=== PATIENT | male | born 1965 | race Caucasian/White ===

== ENCOUNTER 2018-08-17 10:49 | Emergency (ER) | payer OTHER ==
[2018-08-17] MEDS ORDERED: ONDANSETRON HCL INJ/PF 4 MG/2 ML SDV IV ONE (11:38)
[2018-08-17] MEDS ORDERED: KETOROLAC TROMETHAMINE INJ/PF 30 MG/1 ML SDV IV ONE (11:38)
--- NOTE | 2018-08-17 11:40 | ER Document Report ---
ED Medical Screen (RME) - General Chief Complaint: Flank Pain Stated Complaint: FLANK PAIN Time Seen by Provider: 08/17/18 11:38 TRAVEL OUTSIDE OF THE [place] IN LAST 30 DAYS: No - HPI Notes: 08/17/18 11:39 Patient is a 53-year-old male with a history of kidney stones as well as hypertension who presents to the emergency department complaining of right flank pain that has been intermittent over the last couple days. Patient states that when the pain intensifies it does radiate from his right flank to his right groin. Patient states that he has had symptoms previously with kidney stones. He has had associated nausea and vomiting as well. Denies drug allergies. No other concerns or complaints. Denies any headache, fever, chest pain, syncope, cough, shortness of breath, wheeze, diarrhea, urinary retention, loss of control of bowel or bladder, numbness/tingling, saddle anesthesia, muscle paralysis/weakness, or rash. I have treated and performed a rapid initial assessment of this patient. A comprehensive ED assessment and evaluation of the patient, analysis of test results and completion of medical decision making process will be conducted by additional ED providers. PHYSICAL EXAMINATION: GENERAL: Well-appearing, well-nourished and in no acute distress. A&Ox4. Answers questions appropriately. LUNGS: Breath sounds clear to auscultation bilaterally and equal. No wheezes rales or rhonchi. HEART: Regular rate and rhythm without murmurs, rubs, gallops. ABDOMEN: Soft, nondistended abdomen. No guarding, no rebound. Normal bowel sounds present. + mild right CVA tenderness bilaterally. + mild epigastric tenderness (cannot elicit thorough abd exam w/o table, however). Extremities: No cyanosis, clubbing, or edema b/l. NEUROLOGICAL: Normal speech, normal gait. PSYCH: Normal mood, normal affect. - Related Data Allergies/Adverse Reactions: No Known Allergies Allergy (Verified 08/17/18 10:51) Past Medical History - Past Medical History Cardiac Medical History: Reports: Hx Hypertension Renal/ Medical History: Denies: Hx Peritoneal Dialysis Physical Exam - Vital signs Vitals: Temp Pulse Resp BP Pulse Ox 99.5 F 71 17 174/111 H 97 08/17/18 10:57 08/17/18 10:57 08/17/18 10:57 08/17/18 10:57 08/17/18 10:57 Course - Vital Signs Vital signs: Temp Pulse Resp BP Pulse Ox 99.5 F 71 17 174/111 H 97 08/17/18 10:57 08/17/18 10:57 08/17/18 10:57 08/17/18 10:57 08/17/18 10:57
[2018-08-17] MEDS: NORMAL SALINE 1000 ML 1,000 ML IV PRN ×2 (12:05→12:06)
[2018-08-17 12:11] LABS: ABSOLUTE EOSINOPHILS # (AUTO) 0.1 10^3/uL (0.0-0.6); ABSOLUTE LYMPHOCYTES (AUTO) 1.5 10^3/uL (0.5-4.7); ABSOLUTE MONOCYTES (AUTO) 0.8 10^3/uL (0.1-1.4); ABSOLUTE NEUT (AUTO) 5.9 10^3/uL (1.7-8.2); BASOPHILS % (AUTO) 0.4 % (0-2); EOSINOPHILS % (AUTO) 1.3 % (0-6); HEMATOCRIT 46.5 % (37.9-51.0); LYMPHOCYTES % (AUTO) 17.7 % (13-45); MEAN CORPUSCULAR HEMOGLOBIN 31.2 pg (27.0-33.4); MEAN CORPUSCULAR HGB CONC 34.5 g/dL (32.0-36.0); MEAN CORPUSCULAR VOLUME 91 fl (80-97); MONOCYTES % (AUTO) 9.9 % (3-13); PLATELET COUNT 252 10^3/uL (150-450); RED BLOOD COUNT 5.14 10^6/uL (4.35-5.55); RED CELL DISTRIBUTION WIDTH 12.8 % (11.5-14.0); SEGMENTED NEUTROPHILS % (AUTO) 70.7 % (42-78); TOTAL CELLS COUNTED % (AUTO) 100 %; WHITE BLOOD COUNT 8.4 10^3/uL (4.0-10.5)
[2018-08-17 12:20] LABS: APPEARANCE,URINE CLEAR; BILIRUBIN,URINE NEGATIVE (NEGATIVE); COLOR,URINE STRAW; GLUCOSE, URINE NEGATIVE (NEGATIVE); KETONES,URINE NEGATIVE (NEGATIVE); LEUKOCYTE ESTERASE,URINE NEGATIVE (NEGATIVE); NITRITE,URINE NEGATIVE (NEGATIVE); PROTEIN,URINE NEGATIVE (NEGATIVE); URINE SPECIFIC GRAVITY 1.004; UROBILINOGEN,URINE NEGATIVE mg/dL (<2.0)
[2018-08-17 12:35] LABS: ALANINE AMINOTRANSFERASE 21 U/L (21-72); ALBUMIN 4.7 g/dL (3.5-5.0); ALKALINE PHOSPHATASE 88 U/L (38-126); ANION GAP 11 (5-19); ASPARTATE AMINO TRANSFERASE 21 U/L (17-59); BILIRUBIN,DIRECT 0.2 mg/dL (0.0-0.4); BILIRUBIN,TOTAL 1.1 mg/dL (0.2-1.3); BLOOD UREA NITROGEN 12 mg/dL (7-20); CALCIUM 9.8 mg/dL (8.4-10.2); CARBON DIOXIDE 31 mmol/L (22-30); CHLORIDE 95 mmol/L (98-107); GLUCOSE 94 mg/dL (75-110); POTASSIUM 4.5 mmol/L (3.6-5.0); TOTAL PROTEIN 7.3 g/dL (6.3-8.2)
--- NOTE | 2018-08-17 13:25 | RADIOLOGY REPORT (SQ) ---
EXAM DESCRIPTION: CT ABD/PELVIS NO ORAL OR IV COMPLETED DATE/TIME: 08/17/2018 1:11 pm REASON FOR STUDY: Rt flank pain COMPARISON: None. TECHNIQUE: CT scan of the abdomen and pelvis performed without intravenous or oral contrast. Images reviewed with lung, soft tissue, and bone windows. Reconstructed coronal and sagittal MPR images revi ewed. All images stored on PACS. All CT scanners at this facility use dose modulation, iterative reconstruction, and/or weight based d osing when appropriate to reduce radiation dose to as low as reasonably achievable (ALARA). [facility]: Dose Right [facility]: CareDose [facility]: Dose Right [facility]: Teradose 4D [facility]: Smart Backspaces RADIATION DOSE: CT Rad equipment meets quality standard of care and radiation dose reduction techniq ues were employed. CTDIvol: 15.7 mGy. DLP: 889 mGy-cm.mGy. LIMITATIONS: None. FINDINGS: LOWER CHEST: No significant findings. No nodules or infiltrates. NON-CONTRASTED LIVER, SPLEEN, ADRENALS: Evaluation limited by lack of IV contrast. No identified sign ificant masses. Scattered subcentimeter hypodense hepatic lesions, likely cyst but too small to andrés acterize. PANCREAS: No masses. No peripancreatic inflammatory changes. GALLBLADDER: Cholelithiasis. No evidence of acute cholecystitis. RIGHT KIDNEY AND URETER: No suspicious masses. Assessment limited by lack of IV contrast. Multiple punctate nonobstructing right renal stones. There is a 7 mm stone within the proximal right ureter w ith associated mild upstream hydro nephrosis. LEFT KIDNEY AND URETER: No suspicious masses. Assessment limited by lack of IV contrast. Scattered nonobstructing stones, largest measuring 4 mm. No hydronephrosis or hydroureter. AORTA AND RETROPERITONEUM: No aneurysm. No retroperitoneal masses or adenopathy. BOWEL AND PERITONEAL CAVITY: No obvious masses or inflammatory changes. No free fluid. APPENDIX: Normal. PELVIS, BLADDER, AND ABDOMINAL WALL:No abnormal masses. No free fluid. Bladder normal. BONES: No significant findings. OTHER: No other significant finding. IMPRESSION: 1. 7 mm stone within the proximal right ureter with associated mild upstream hydronephr osis. 2. Additional bilateral nonobstructing renal stones. COMMENT: Quality ID # [id number]: Final reports with documentation of one or more dose reduction techniques (e.g., Automated exposure control, adjustment of the mA and/or kV according to patient size, use of iterative reconstruction technique) TECHNICAL DOCUMENTATION: JOB ID: [id number] [employer]- All Rights Reserved Reading location - IP/workstation name: [email or web address]
[2018-08-17] MEDS ORDERED: TAMSULOSIN HCL 0.4 MG CAP.SR.24H PO ONE (15:37)
--- NOTE | 2018-08-17 15:45 | ER Document Report ---
HPI - HPI Patient complains to provider of: Flank pain Time Seen by Provider: 08/17/18 11:38 Onset/Duration: Persistent Quality of pain: Achy Pain Level: Denies Context: Patient presents complaining of a 4-day history of intermittent right flank pain. Patient states when he has the pain he will occasionally get nauseous. Patient reports vomiting x2 episodes today. Patient denies any fever. Patient reports history of kidney stones and suspects the same today. Patient has never followed up with urology in the past. Patient reports that pain is resolved at this time. Associated Symptoms: Other - Right flank pain. denies: Fever, Nausea, Vomiting Exacerbated by: Denies Relieved by: Denies Similar symptoms previously: No Recently seen / treated by doctor: No - ROS ROS below otherwise negative: Yes Systems Reviewed and Negative: Yes All other systems reviewed and negative - CONSTITUTIONAL Constitutional: DENIES: Fever - RESPIRATORY Respiratory: DENIES: Trouble Breathing, Coughing - GASTROINTESTINAL Gastrointestinal: REPORTS: Nausea, Patient vomiting. DENIES: Abdominal Pain - URINARY Urinary: DENIES: Dysuria, Urgency, Frequency - MUSCULOSKELETAL Musculoskeletal: REPORTS: Back Pain - DERM Skin Color: Normal Skin Problems: None Past Medical History - General Information source: Patient - Social History Smoking Status: Never Smoker Frequency of alcohol use: None Drug Abuse: None Occupation: Massage therapist Lives with: Family Family History: Reviewed & Not Pertinent Patient has suicidal ideation: No Patient has homicidal ideation: No Renal/ Medical History: Reports: Hx Kidney Stones. Denies: Hx Peritoneal Dialysis Surgical Hx: Negative Vertical Provider Document - CONSTITUTIONAL Agree With Documented VS: Yes Exam Limitations: No Limitations General Appearance: WD/WN, No Apparent Distress - INFECTION CONTROL TRAVEL OUTSIDE OF THE [place] IN LAST 30 DAYS: No - HEENT HEENT: Atraumatic, Normocephalic - NECK Neck: Normal Inspection - RESPIRATORY Respiratory: Breath Sounds Normal, No Respiratory Distress - CARDIOVASCULAR Cardiovascular: Regular Rate, Regular Rhythm - GI/ABDOMEN Gastrointestinal: Abdomen Soft, Abdomen Non-Tender, Normal Bowel Sounds - BACK Back: Normal Inspection. negative: CVA Tenderness-Right, CVA Tenderness-Left - MUSCULOSKELETAL/EXTREMETIES Musculoskeletal/Extremeties: MAEW, DEREK - NEURO Level of Consciousness: Awake, Alert, Appropriate Motor/Sensory: No Motor Deficit - DERM Integumentary: Warm, Dry, No Rash Course - Re-evaluation Re-evalutation: 08/17/18 15:[address] childress regarding patient presentation and diagnostic evaluation. Agrees with discharge plan of care and recommends outpatient follow-up with urology. Patient denies any abdominal pain or flank pain at this time. - Vital Signs Vital signs: Temp Pulse Resp BP Pulse Ox 99.5 F 71 17 174/111 H 97 08/17/18 10:57 08/17/18 10:57 08/17/18 10:57 08/17/18 10:57 08/17/18 10:57 - Laboratory Result Diagrams: 08/17/18 11:55 08/17/18 11:55 Laboratory results interpreted by me: 08/17/18 08/17/18 11:55 11:55 Chloride 95 L Carbon Dioxide 31 H Creatinine 1.38 H Est GFR (Non-Af Amer) 54 L Urine Blood LARGE H 08/17/18 15:44 Labs- Entire Visit 08/17/18 08/17/18 08/17/18 11:55 11:55 11:55 WBC 8.4 RBC 5.14 Hgb 16.0 Hct 46.5 MCV 91 MCH 31.2 MCHC 34.5 RDW 12.8 Plt Count 252 Seg Neutrophils % 70.7 Lymphocytes % 17.7 Monocytes % 9.9 Eosinophils % 1.3 Basophils % 0.4 Absolute Neutrophils 5.9 Absolute Lymphocytes 1.5 Absolute Monocytes 0.8 Absolute Eosinophils 0.1 Absolute Basophils 0.0 Sodium 137.0 Potassium 4.5 Chloride 95 L Carbon Dioxide 31 H Anion Gap 11 BUN 12 Creatinine 1.38 H Est GFR ( Amer) > 60 Est GFR (Non-Af Amer) 54 L Glucose 94 Calcium 9.8 Total Bilirubin 1.1 Direct Bilirubin 0.2 Neonat Total Bilirubin Not Reportable Neonat Direct Bilirubin Not Reportable Neonat Indirect Bili Not Reportable AST 21 ALT 21 Alkaline Phosphatase 88 Total Protein 7.3 Albumin 4.7 Urine Color STRAW Urine Appearance CLEAR Urine pH 7.0 Ur Specific [place] 1.004 Urine Protein NEGATIVE Urine Glucose (UA) NEGATIVE Urine Ketones NEGATIVE Urine Blood LARGE H Urine Nitrite NEGATIVE Urine Bilirubin NEGATIVE Urine Urobilinogen NEGATIVE Ur Leukocyte Esterase NEGATIVE Urine WBC (Auto) 1 Urine RBC (Auto) 0 Urine Mucus (Auto) RARE Urine Ascorbic Acid NEGATIVE - Diagnostic Test Radiology reviewed: Reports reviewed Discharge - Discharge Clinical Impression: Ureteral stone Condition: Stable Disposition: HOME, SELF-CARE Additional Instructions: Return immediately for any new or worsening symptoms Followup with your primary care provider, call tomorrow to make a followup appointment Follow-up with urology for further evaluation, call today for an appointment. KIDNEY STONE: You are passing or have passed a kidney stone. These stones are usually due to increased calcium or uric acid concentrations in your urine. Stones within the kidney itself are not painful. The pain occurs as the stone leaves the kidney to pass down the long tube, called the ureter, leading to the bladder. If the stone is small, it will usually pass by itself. Most patients can pass the stone at home. You will usually receive medications for pain, nausea or vomiting, and sometimes a medication to assist in passing the kidney stone. However, if the pain is very severe or if vomiting prevents you from taking oral pain medications, you may need to return for further treatment. Drink three or four quarts of fluids per day. You will be given pain medication (if needed) and urine strainers. Strain all your urine to see if the stone passes. If your doctor has asked you to bring the stone in for analysis, return with the stone once it has passed. Return if pain or vomiting become severe, if you develop a high fever, if you are unable to pass your urine, or if other unusual symptoms occur. TORADOL INJECTION: You have been given an injection of ketorolac tromethamine (Toradol). This is an excellent, safe drug for pain control. It also has potent antiinflammatory action. You should have significant pain relief within about one hour. Toradol is not addicting and is non-sedating. It does not interfere with driving or work. Call or return if you develop itching, hives, shortness of breath, or rash. ANTINAUSEA MEDICATION: You have been given a medication to suppress nausea and vomiting. This type of medication can be given as a shot, pill, or suppository. It will usually last for many hours. Pills and shots usually last six to eight hours, suppositories last about 12 hours. For the typical illness, only one or two doses of the medication may be necessary. Mild lightheadedness may occur. This type of medicine can cause drowsiness. Do not drive or operate dangerous machinery while under its influence. Do not mix with alcohol. See your doctor at once if you have muscle spasms or tightness, or uncontrollable motions (particularly of the neck, mouth, or jaw). Persistent vomiting or severe lightheadedness should also be evaluated by the physician. ORAL NARCOTIC MEDICATION: You have been given a prescription for pain control. This medication is a narcotic. It's best taken with food, as nausea can result if taken on an empty stomach. Don't operate machinery or drive within six hours of taking this medication. Do not combine this medicine with alcohol, or with any medication which can cause sedation (such as cold tablets or sleeping pills) unless you get permission from the physician. Narcotics tend to cause constipation. If possible, drink plenty of fluids and eat a diet high in fiber and fruits. Please be aware that prescription narcotics also have the potential for abuse. People become addicted to these medications because of the general sense of wellbeing that they induce. This feeling along with a significant reduction in tension, anxiety, and aggression provides a stimulating seductive quality to these drugs. Once your pain is under control, we encourage you to discard your unused narcotics. FLOMAX (tamsulosin): Flomax is a medicine that shrinks the prostate gland. It helps relieve symptoms of benign prostatic hypertrophy, such as frequent urination, weak stream, and inadequate emptying. It has been shown to dilate the ureter (tube leading from the kidney to the bladder) and help in passing kidney stones Flomax usually causes no side effects. You may notice slight tiredness and dizziness for a few days. Some patients develop nasal congestion. Rarely, impotence can occur. If the symptoms are bothersome and don't improve with continued use, call your doctor. Contact your doctor or return if you have fainting spells, severe weakness or dizziness, shortness of breath, or rash. FOLLOW-UP CARE: If you have been referred to a physician for follow-up care, call the physicians office for an appointment as you were instructed or within the next two days. If you experience worsening or a significant change in your symptoms, notify the physician immediately or return to the Emergency Department at any time for re-evaluation. Prescriptions: Ondansetron HCl [Zofran 4 mg Tablet] 1 - 2 tab PO Q6 PRN #15 tablet PRN Reason: Oxycodone HCl/Acetaminophen [Percocet 5-325 mg Tablet] 1 tab PO ASDIR PRN #15 tablet PRN Reason: Tamsulosin HCl [Flomax 0.4 mg Cap.sr] 0.4 mg PO DAILY #7 cap.sr.24h Forms: Return to Work Referrals: [facility] [Provider Group] - Follow up as needed [facility] [Provider Group] - Follow up as needed [facility] [Provider Group] - Follow up tomorrow
[2018-08-17 15:51] VITALS: BP 160/98
== END 2018-08-17 15:55 | disposition home or self-care (01) ==
LOC: ER 10:49
DX: N13.2 Hydronephrosis with renal and ureteral calculous obstruction (principal)
CPT/HCPCS: 99284; 96361; 96374; 96375; 36415; 87086; 85025; 80053; 81001; 74176; J1885; J2405; J7030

== ENCOUNTER 2018-11-29 13:24 | Emergency (ER) | payer OTHER ==
--- NOTE | 2018-11-29 13:58 | ER Document Report ---
Addendum entered and electronically signed by OMAR LOBO PA-C 11/29/18 14:06: Course - Re-evaluation Re-evalutation: 11/29/18 14:06 Pt only urinated 20cc and was hematuria. Emery will be placed. Pt still uncomfortable and feeling of incomplete void - Vital Signs Vital signs: Temp Pulse Resp BP Pulse Ox 98.3 F 80 18 147/101 H 97 11/29/18 13:34 11/29/18 13:34 11/29/18 13:34 11/29/18 13:34 11/29/18 13:34 Original Note: ED Medical Screen (RME) - General Chief Complaint: Urinary Problem Stated Complaint: BLOOD IN URINE Time Seen by Provider: 11/29/18 13:51 Primary Care Provider: GERTRUDIS SCHROEDER MD [Primary Care Provider] - Follow up as needed TRAVEL OUTSIDE OF THE [place] IN LAST 30 DAYS: No - HPI Notes: 11/29/18 13:56 Patient is a 53-year-old male with a history of hypertension who presents complaining of hematuria, being unable to fully void, suprapubic pressure, and some discomfort with urinating that began last evening. Patient states that he is just having drops of blood at this point coming out. He did have a stent placed for kidney stones 1 week ago at [facility]. Patient states that he did urinate clear yesterday which was the first time since the procedure, but then started having a lot of hematuria thereafter which is what prompted him to come here. Patient states he feels like he has to urinate, but cannot. Denies NOEL, fever, neck pain, URI, CP, SOB, back pain, or rash. I have treated and performed a rapid initial assessment of this patient. A comprehensive ED assessment and evaluation of the patient, analysis of test results and completion of medical decision making process will be conducted by additional ED providers. PHYSICAL EXAMINATION: GENERAL: Well-appearing, well-nourished and in no acute distress. A&Ox4. Answers questions appropriately. LUNGS: Breath sounds clear to auscultation bilaterally and equal. No wheezes rales or rhonchi. HEART: Regular rate and rhythm without murmurs, rubs, gallops. - Related Data Allergies/Adverse Reactions: No Known Allergies Allergy (Verified 08/17/18 10:51) Past Medical History - Past Medical History Cardiac Medical History: Reports: Hx Hypertension Renal/ Medical History: Reports: Hx Kidney Stones. Denies: Hx Peritoneal Dialysis Physical Exam - Vital signs Vitals: Temp Pulse Resp BP Pulse Ox 98.3 F 80 18 147/101 H 97 11/29/18 13:34 11/29/18 13:34 11/29/18 13:34 11/29/18 13:34 11/29/18 13:34 Course - Vital Signs Vital signs: Temp Pulse Resp BP Pulse Ox 98.3 F 80 18 147/101 H 97 11/29/18 13:34 11/29/18 13:34 11/29/18 13:34 11/29/18 13:34 11/29/18 13:34 Doctor's Discharge - Discharge Referrals: GERTRUDIS SCHROEDER MD [Primary Care Provider] - Follow up as needed
[2018-11-29 14:13] LABS: APPEARANCE,URINE SLIGHTLY-CLOUDY; BILIRUBIN,URINE NEGATIVE (NEGATIVE); GLUCOSE, URINE NEGATIVE (NEGATIVE); KETONES,URINE NEGATIVE (NEGATIVE); LEUKOCYTE ESTERASE,URINE NEGATIVE (NEGATIVE); NITRITE,URINE NEGATIVE (NEGATIVE); PROTEIN,URINE >=500 mg/dL (NEGATIVE); URINE SPECIFIC GRAVITY 1.016; UROBILINOGEN,URINE NEGATIVE mg/dL (<2.0)
[2018-11-29 14:17] LABS: COLOR,URINE RED
[2018-11-29 14:37] LABS: ABSOLUTE BASOPHILS # (AUTO) 0.1 10^3/uL (0.0-0.2); ABSOLUTE EOSINOPHILS # (AUTO) 0.1 10^3/uL (0.0-0.6); ABSOLUTE LYMPHOCYTES (AUTO) 1.4 10^3/uL (0.5-4.7); ABSOLUTE MONOCYTES (AUTO) 0.6 10^3/uL (0.1-1.4); ABSOLUTE NEUT (AUTO) 7.3 10^3/uL (1.7-8.2); BASOPHILS % (AUTO) 0.5 % (0-2); EOSINOPHILS % (AUTO) 1.4 % (0-6); HEMATOCRIT 43.6 % (37.9-51.0); MEAN CORPUSCULAR HEMOGLOBIN 30.8 pg (27.0-33.4); MEAN CORPUSCULAR HGB CONC 34.5 g/dL (32.0-36.0); MEAN CORPUSCULAR VOLUME 89 fl (80-97); MONOCYTES % (AUTO) 6.7 % (3-13); PLATELET COUNT 315 10^3/uL (150-450); RED BLOOD COUNT 4.89 10^6/uL (4.35-5.55); RED CELL DISTRIBUTION WIDTH 12.6 % (11.5-14.0); SEGMENTED NEUTROPHILS % (AUTO) 76.4 % (42-78); TOTAL CELLS COUNTED % (AUTO) 100 %; WHITE BLOOD COUNT 9.6 10^3/uL (4.0-10.5)
[2018-11-29 15:00] LABS: ALANINE AMINOTRANSFERASE 22 U/L (21-72); ALKALINE PHOSPHATASE 84 U/L (38-126); ANION GAP 11 (5-19); ASPARTATE AMINO TRANSFERASE 40 U/L (17-59); BILIRUBIN,DIRECT 0.3 mg/dL (0.0-0.4); BILIRUBIN,TOTAL 0.8 mg/dL (0.2-1.3); BLOOD UREA NITROGEN 19 mg/dL (7-20); CALCIUM 10.1 mg/dL (8.4-10.2); CARBON DIOXIDE 30 mmol/L (22-30); CHLORIDE 96 mmol/L (98-107); GLUCOSE 107 mg/dL (75-110); POTASSIUM 4.4 mmol/L (3.6-5.0); SODIUM 137.1 mmol/L (137-145); TOTAL PROTEIN 7.6 g/dL (6.3-8.2)
[2018-11-29] MEDS ORDERED: CEFTRIAXONE 1 GM/D5W RTU 1 GM/50 ML RTUPB IV ONE (15:00)
--- NOTE | 2018-11-29 15:06 | RADIOLOGY REPORT (SQ) ---
EXAM DESCRIPTION: CT ABD/PELVIS NO ORAL OR IV COMPLETED DATE/TIME: 11/29/2018 2:52 pm REASON FOR STUDY: Rt flank pain, recent stent, hematuria COMPARISON: 08/17/2018. TECHNIQUE: CT scan of the abdomen and pelvis performed without intravenous or oral contrast. Images reviewed with lung, soft tissue, and bone windows. Reconstructed coronal and sagittal MPR images revi ewed. All images stored on PACS. All CT scanners at this facility use dose modulation, iterative reconstruction, and/or weight based d osing when appropriate to reduce radiation dose to as low as reasonably achievable (ALARA). [facility]: Dose Right [facility]: CareDose [facility]: Dose Right [facility]: Teradose 4D [facility]: [employer] RADIATION DOSE: CT Rad equipment meets quality standard of care and radiation dose reduction techniq ues were employed. CTDIvol: 16.1 mGy. DLP: 963 mGy-cm.mGy. LIMITATIONS: None. FINDINGS: LOWER CHEST: No significant findings. No nodules or infiltrates. NON-CONTRASTED LIVER, SPLEEN, ADRENALS: Evaluation limited by lack of IV contrast. No identified sign ificant masses. PANCREAS: No masses. No peripancreatic inflammatory changes. GALLBLADDER: Gallstones. No inflammatory changes to suggest cholecystitis. RIGHT KIDNEY AND URETER: No suspicious masses. Assessment limited by lack of IV contrast. No signif icant calcifications. Ureteral stent present. Proximal loop in the upper pole calyceal system and distal loop in the bladder. No hydronephrosis or hydroureter. LEFT KIDNEY AND URETER: No suspicious masses. Assessment limited by lack of IV contrast. Calyceal c alculi in the lower pole. No hydronephrosis or hydroureter. AORTA AND RETROPERITONEUM: No aneurysm. No retroperitoneal masses or adenopathy. BOWEL AND PERITONEAL CAVITY: No obvious masses or inflammatory changes. No free fluid. APPENDIX: Normal. PELVIS, BLADDER, AND ABDOMINAL WALL:No abnormal masses. No free fluid. Catheter in the bladder. BONES: No significant findings. OTHER: No other significant finding. IMPRESSION: 1. INTERVAL PLACEMENT OF A RIGHT URETERAL STENT. NO SIGNIFICANT HYDRONEPHROSIS OR HYDROURETER. 2. NONOBSTRUCTING CALYCEAL CALCULI IN THE LOWER POLE OF THE LEFT KIDNEY. 3. GALLSTONES. 4. NO OTHER SIGNIFICANT OR ACUTE PROCESS IN THE ABDOMEN OR PELVIS. COMMENT: Quality ID # [id number]: Final reports with documentation of one or more dose reduction techniques (e.g., Automated exposure control, adjustment of the mA and/or kV according to patient size, use of iterative reconstruction technique) TECHNICAL DOCUMENTATION: JOB ID: [id number] [employer]- All Rights Reserved Reading location - IP/workstation name: [email or web address]
--- NOTE | 2018-11-29 16:56 | ER Document Report ---
ED General - General Chief Complaint: Urinary Problem Stated Complaint: BLOOD IN URINE Time Seen by Provider: 11/29/18 13:51 Primary Care Provider: GERTRUDIS SCHROEDER MD [NO LOCAL MD] - Follow up as needed TRAVEL OUTSIDE OF THE [place] IN LAST 30 DAYS: No - HPI Notes: Patient is a 53-year-old male, who presents to the emergency department for evaluation of hematuria and the sensation that his bladder is not emptying. He had lithotripsy with right ureteral stent placement 6 days ago. He states he had some pink urine which seemed to resolve. He started having more significantly gross hematuria in the last 24 hours. He puts his pain at a 2 out of 10 in his flank area, states that ice seems to help it significantly. He does relate that earlier today he felt chilled, was very sweaty in a cold room. He denies any nausea or vomiting. Normal bowel movements. No other acute c omplaints or concerns. He relates that he was to see his urologist tomorrow for stent removal. He notes that the "string" is no longer visible. - Related Data Allergies/Adverse Reactions: No Known Allergies Allergy (Verified 08/17/18 10:51) Past Medical History - General Information source: Patient - Social History Smoking Status: Unknown if Ever Smoked Family History: Reviewed & Not Pertinent Patient has suicidal ideation: No Patient has homicidal ideation: No - Past Medical History Cardiac Medical History: Reports: Hx Hypertension Renal/ Medical History: Reports: Hx Kidney Stones. Denies: Hx Peritoneal Dialysis Review of Systems - Review of Systems Constitutional: No symptoms reported EENT: No symptoms reported Cardiovascular: No symptoms reported Respiratory: No symptoms reported Gastrointestinal: No symptoms reported Genitourinary: See HPI Male Genitourinary: No symptoms reported Musculoskeletal: No symptoms reported Skin: No symptoms reported Neurological/Psychological: No symptoms reported Physical Exam - Vital signs Vitals: Temp Pulse Resp BP Pulse Ox 98.3 F 80 18 147/101 H 97 11/29/18 13:34 11/29/18 13:34 11/29/18 13:34 11/29/18 13:34 11/29/18 13:34 - Notes Notes: Vital signs reviewed, please refer to chart. Head is normocephalic, atraumatic. Pupils equal round, reactive to light. Neck is supple without meningismus. Heart is regular rate and rhythm. Lungs are clear to auscultation bilaterally. Abdomen is soft, nontender, normoactive bowel sounds throughout. No significant CVA tenderness. Extremities without cyanosis, clubbing. Posterior calves are nontender. Peripheral pulses are equal. Skin is warm and dry. Patient is awake, alert, neurological exam is nonfocal. Course - Re-evaluation Re-evalutation: 11/29/18 16:52 Patient presents to the emergency department for evaluation. He had initial laboratory investigation, orders, and imaging as through triage. His urine was grossly bloody. Triage order was for a Emery catheter. I did evaluate the urine in the Emery bag. It did appear to be more blood than urine. He had over 800 cc present. Order was given to irrigate the bladder. Despite irrigation with over a liter and half of fluids, there is no significant change in the color of this patient's urine. Decision was made to leave the Emery in place. Patient's urinalysis did reveal significant white blood cells as well. Given his chills, I was inclined to treat him for a possible infection with IV antibiotics. He is given IV ceftriaxone. I will send him home with a short course of Keflex. Urine is sent for culture. He is given instructions on how to care for the Emery. He is to follow-up with his urologist as scheduled. He is to return to the emergency department with worsening or new concerning symptoms of any sort. - Vital Signs Vital signs: Temp Pulse Resp BP Pulse Ox 98.3 F 80 18 147/101 H 97 11/29/18 13:34 11/29/18 13:34 11/29/18 13:34 11/29/18 13:34 11/29/18 13:34 - Laboratory Result Diagrams: 11/29/18 14:28 11/29/18 14:28 Laboratory results interpreted by wa: 11/29/18 11/29/18 13:31 14:28 Chloride 96 L Urine Protein >=500 H Urine Blood LARGE H Urine Ascorbic Acid 20 H Discharge - Discharge Clinical Impression: Acute urinary retention Hematuria Qualifiers: Hematuria type: gross Qualified Code(s): R31.0 - Gross hematuria Condition: Stable Disposition: HOME, SELF-CARE Instructions: Hematuria ([facility]), Emery Catheter Care ([facility]) Additional Instructions: Follow-up with your urologist tomorrow. Take antibiotic as prescribed. Emery catheter care as instructed. Return to the emergency department with worsening or new concerning symptoms of any sort. Referrals: GERTRUDIS SCHROEDER MD [NO LOCAL MD] - Follow up as needed
[2018-11-29 17:18] VITALS: BP 140/88
== END 2018-11-29 17:17 | disposition home or self-care (01) ==
LOC: ER 13:24
DX: R33.9 Retention of urine, unspecified (principal); R31.0 Gross hematuria
CPT/HCPCS: 99284; 51702; 96365; 36415; 87086; 85025; 80053; 81001; 74176; J0696

== ENCOUNTER 2018-11-29 18:15 | Emergency (ER) | payer OTHER ==
[2018-11-29] MEDS ORDERED: NORMAL SALINE 1000 ML 1,000 ML IV ONE (19:29)
[2018-11-29 20:14] LABS: ABSOLUTE EOSINOPHILS # (AUTO) 0.1 10^3/uL (0.0-0.6); ABSOLUTE LYMPHOCYTES (AUTO) 1.2 10^3/uL (0.5-4.7); ABSOLUTE MONOCYTES (AUTO) 0.8 10^3/uL (0.1-1.4); ABSOLUTE NEUT (AUTO) 8.4 10^3/uL (1.7-8.2); BASOPHILS % (AUTO) 0.3 % (0-2); EOSINOPHILS % (AUTO) 0.8 % (0-6); HEMATOCRIT 41.8 % (37.9-51.0); HEMOGLOBIN 14.5 g/dL (13.5-17.0); LYMPHOCYTES % (AUTO) 11.5 % (13-45); MEAN CORPUSCULAR HEMOGLOBIN 30.8 pg (27.0-33.4); MEAN CORPUSCULAR HGB CONC 34.7 g/dL (32.0-36.0); MEAN CORPUSCULAR VOLUME 89 fl (80-97); MONOCYTES % (AUTO) 7.3 % (3-13); PLATELET COUNT 276 10^3/uL (150-450); RED BLOOD COUNT 4.71 10^6/uL (4.35-5.55); RED CELL DISTRIBUTION WIDTH 12.7 % (11.5-14.0); SEGMENTED NEUTROPHILS % (AUTO) 80.1 % (42-78); TOTAL CELLS COUNTED % (AUTO) 100 %; WHITE BLOOD COUNT 10.5 10^3/uL (4.0-10.5)
[2018-11-29 20:38] LABS: ALANINE AMINOTRANSFERASE 19 U/L (21-72); ALBUMIN 4.4 g/dL (3.5-5.0); ALKALINE PHOSPHATASE 74 U/L (38-126); ANION GAP 11 (5-19); ASPARTATE AMINO TRANSFERASE 34 U/L (17-59); BILIRUBIN,DIRECT 0.3 mg/dL (0.0-0.4); BILIRUBIN,TOTAL 0.7 mg/dL (0.2-1.3); BLOOD UREA NITROGEN 19 mg/dL (7-20); CALCIUM 9.7 mg/dL (8.4-10.2); CARBON DIOXIDE 27 mmol/L (22-30); CHLORIDE 96 mmol/L (98-107); GLUCOSE 112 mg/dL (75-110); SODIUM 133.7 mmol/L (137-145); TOTAL PROTEIN 6.7 g/dL (6.3-8.2)
--- NOTE | 2018-11-30 00:05 | ER Document Report ---
ED General - General TRAVEL OUTSIDE OF THE [place] IN LAST 30 DAYS: No <IGNACIO WIGGINS - Last Filed: 11/30/18 00:12> <MEAGAN ALFREDO - Last Filed: 11/30/18 03:15> - General Chief Complaint: Penile Bleeding Stated Complaint: CATHETER PROBLEM Time Seen by Provider: 11/29/18 19:23 Primary Care Provider: [facility] [Primary [facility] Provider] - Follow up as needed - HPI Notes: Patient is a 53-year-old male, who actually the pleasure of seeing earlier this evening. He had gone home with a Lynn catheter. He states with change of position he had a large amount of bloody urine drain out of his penis. He is unsure, but believes that the catheter at that time had stopped draining. He did not have any significant pain, but he became dizzy and diaphoretic. He presents to the emergency department for further evaluation. Again, the patient had lithotripsy and ureteral stent placed recently, he is to follow-up with [facility] on . (IGNACIO WIGGINS) - Related Data Allergies/Adverse Reactions: No Known Allergies Allergy (Verified 08/17/18 10:51) Past Medical History - General Information source: Patient - Social History Smoking Status: Never Smoker Chew tobacco use (# tins/day): Yes Family History: Reviewed & Not Pertinent Patient has suicidal ideation: No Patient has homicidal ideation: No - Past Medical History Cardiac Medical History: Reports: Hx Hypertension Renal/ Medical History: Reports: Hx Kidney Stones. Denies: Hx Peritoneal Dialysis <IGNACIO WIGGINS - Last Filed: 11/30/18 00:12> Review of Systems - Review of Systems Constitutional: See HPI EENT: No symptoms reported Cardiovascular: No symptoms reported Respiratory: No symptoms reported Gastrointestinal: No symptoms reported Genitourinary: See HPI Male Genitourinary: No symptoms reported Musculoskeletal: No symptoms reported Skin: No symptoms reported Neurological/Psychological: No symptoms reported <IGNACIO WIGGINS - Last Filed: 11/30/18 00:12> Physical Exam <IGNACIO WIGGINS - Last Filed: 11/30/18 00:12> - Vital signs Vitals: Resp Pulse Ox 11 L 96 11/29/18 19:44 11/29/18 19:44 - Notes Notes: Vital signs reviewed, please refer to chart. Head is normocephalic, atraumatic. Pupils equal round, reactive to light. Neck is supple without meningismus. Heart is regular rate and rhythm. Lungs are clear to auscultation bilaterally. Abdomen is soft, nontender, normoactive bowel sounds throughout. General exam reveals Lynn catheter in place with hematuria draining. There is dried blood around the urethral meatus. Extremities without cyanosis, clubbing. Posterior calves are nontender. Peripheral pulses are equal. Skin is warm and mildly diaphoretic. Patient is awake, alert, neurological exam is nonfocal. (IGNACIO WIGGINS) Course - Laboratory Result Diagrams: 11/29/18 20:00 11/29/18 20:00 <IGNACIO WIGGINS - Last Filed: 11/30/18 00:12> - Laboratory Result Diagrams: 11/29/18 20:00 11/29/18 20:00 <MEAGAN ALFREDO - Last Filed: 11/30/18 03:15> - Re-evaluation Re-evalutation: 11/30/18 00:02 Patient presents to the emergency department for evaluation. His Lynn catheter was leaking. My suspicion is that it was clotted off, and draining around the catheter. I also suspect that his diaphoresis and dizziness was as a result of a vagal reaction, likely at the sight of the blood. The patient had a three-way catheter placed, underwent bladder irrigation. He did have significant clearing of the urine. I explained to the patient his options. I explained that certainly, given the amount of blood that was present earlier, it is possible that he will bleed again, clot off again, and have acute urinary retention requiring Lynn catheter placement. We discussed options, and he was given the choice as to whether or not he wanted to be discharged with the catheter. He chooses not to at this time. I explained to him that any retention should prompt him to return, and he voiced understanding. Otherwise he is to return to the ED with worsening or new concerning symptoms, and follow-up with his urologist as scheduled on . (IGNACIO WIGGINS) 11/30/18 02:[address] Fuentes left the patient's catheter clotted again. There is was unable to relieve the clot. Is able to flush and relieve the clot. Restarted bladder irrigation. I did a bedside ultrasound which shows what appears to be a moderate-sized blood clot in the bladder. I suspect he probably has bleeding from his ureteral stent which is causing blood to settle in his bladder and form clots. He has already failed being sent home once. His catheters continue to re-clot. He does not have a follow-up appointment until with his urologist. That is more than 24 hours form now. I do not think he will do well for me to send him home as he will just continue to re- clot. He is failing continuous bladder irrigation as he is still frequently clotting his catheter despite the continuous irrigation thru a 3 way lynn. We could continue to do bladder irrigation however if his Lynn catheter continues to clot despite the continuous irrigation and therefore I suspect he needs the stent removed as well as possible clot evacuation of his bladder in order to prevent him from having frequent urinary retention from obstruction of due to the clotting. We do not have urology here and therefore these procedures cannot be performed here. I therefore called and spoke with with Dr. Brady who his urologist at [facility] and discussed my concerns with him. He agrees to accept the patient has an ER to ER transfer and the patient's urologist will be on in the morning and will take over the care of the patient at [facility]. Patient is agreeable to plan. After I got off the phone with Dr. Brady the patient's catheter has since clotted 2 more times requiring me to again irrigate the main port of the catheter and suck out multiple blood clots and we irrigated with saline again a pulled out more blood clots just to get it running again. Patient's catheter has been clotting frequently despite me doing this several times. 11/30/18 03:14 Transport is at bedside. I just finished repositioning the patient's catheter and flushing as it was clotting off again with return of the irrigation again. After repositioning patient's catheter it has now started to flow well again. Transport team is at bedside and patient is stable for transport. (MEAGAN ALFREDO) - Vital Signs Vital signs: Temp Pulse Resp BP Pulse Ox 98.6 F 15 113/63 96 11/30/18 01:01 11/30/18 01:01 11/30/18 01:01 11/30/18 01:01 - Laboratory Laboratory results interpreted by me: 11/29/18 11/29/18 20:00 20:00 Seg Neutrophils % 80.1 H Lymphocytes % 11.5 L Absolute Neutrophils 8.4 H Sodium 133.7 L Chloride 96 L Glucose 112 H ALT 19 L Discharge <IGNACIO WIGGINS - Last Filed: 11/30/18 00:12> <MEAGAN ALFREDO - Last Filed: 11/30/18 03:15> - Discharge Clinical Impression: Acute urinary retention Hematuria Qualifiers: Hematuria type: gross Qualified Code(s): R31.0 - Gross hematuria Condition: Stable Disposition: [facility] Referrals: [facility] [Primary Care Provider] - Follow up as needed
[2018-11-30 03:21] VITALS: BP 116/64
== END 2018-11-30 03:34 | disposition short-term general hospital (02) ==
LOC: ER 18:15
DX: R33.9 Retention of urine, unspecified (principal); R31.0 Gross hematuria; Z46.6 Encounter for fitting and adjustment of urinary device; I10 Essential (primary) hypertension; Z87.442 Personal history of urinary calculi
CPT/HCPCS: 99284; 96360; 96361; 36415; J7030